=== PATIENT | male | born 1985 | race Caucasian/White ===

== ENCOUNTER 2018-05-08 15:58 | Emergency (ER) | payer OTHER, SELFPAY ==
[2018-05-08 17:11] VITALS: BP 144/79; PULSE 86; RESP 18; TEMP 37; O2SAT 100
--- NOTE | 2018-05-08 17:28 | DI.RAD_ITS ---
SYMPTOMS/DIAGNOSIS: COUGH, CONGESTION CHEST X-RAY, PA AND LATERAL: Comparison is 02/06/12. The heart is normal in size. The lungs are clear. The mediastinal structures and pleura appear intact. IMPRESSION: Normal chest.
--- NOTE | 2018-05-08 17:31 | ED.GENADUL_ITS ---
Discharge Plan Disposition Patient Disposition: HOME Condition: Improving Discharge Details Chief Complaint: RespSymp Clinical Impression: Acute bronchitis with bronchospasm Reason For Visit: cold chills SOB Primary Care Provider: Milady Hernandez ED Provider: Trevor Lazo Home Meds and New Rx's Prescriptions: New doxycycline hyclate 100 mg capsule 100 mg PO BID 10 Days Qty: 20 RF: 0 No Action methylprednisolone 4 MG tablets,dose pack 4 mg PO DIRECTED Qty: 1 RF: 0 Discharge Instructions Instructions: Acute Bronchitis (ED) Additional Instructions: Antibiotics as prescribed, May use albuterol, as needed for shortness of breath, wheeze, coughing spasms during times of illness. Return if you develop worsening discomfort, difficulty breathing, or any other acute concerns. Medical Decision Making 33-year-old male presents from home with day 2 of cough, congestion, mild shortness of breath is worse with exertion. Is not had chest pain. He did have associated fever. He arrives with a temperature of 37, pulse 86, blood pressure 144/79 with a normal oxygenation. Diagnosis includes URI with bronchospasm, viral versus bacterial, must exclude underlying influenza. Influenza testing negative. Patient's chestXR without focal infiltrate. I do feel he has bronchitis and mild bronchospasm is needed to improve movement of air following DuoNeb updraft. I will treated with a course of doxycycline as well as as needed use of albuterol at home. He stable, improved, appropriate for discharge to home at this time. ECG Data Attestation: I personally reviewed and interpreted this ECG (s) as follows: Interpretation: Normal sinus rhythm, rate is 82, QRS is narrow, no ST segment elevation HPI General Mode of arrival: ambulatory . Date/Time Provider Initiated Documentation: 05/08/18 16:17 . Limitations to Documentation: no limitations . Information obtained by: patient . History of Present Illness 33 year old M presents to the emergency department with the chief complaint of Cough, malaise, feeling short of breath, described as moderate, Quality is described as dull and constant, and is localized to the chest. Patient reports no radiation. Patient started experiencing this day(s) and it has been constant. No relieving factors improve symptom(s), No exacerbating factors reported . Patient notes no other symptoms.. Patient did receive the following treatments prior to arrival, none Related Data Home Medications Medication Instructions Recorded Confirmed methylprednisolone 4 mg PO DIRECTED #1 pkt 08/22/13 07/01/15 doxycycline hyclate 100 mg PO BID 10 Days #20 cap 05/08/18 Previous Rx's Medication Instructions Recorded methylprednisolone 4 mg PO DIRECTED #1 pkt 08/22/13 doxycycline hyclate 100 mg PO BID 10 Days #20 cap 05/08/18 Allergies Allergy/AdvReac Type Severity Reaction Status Date / Time No Known Allergies Allergy Unverified 07/01/15 10:05 General Stated Complaint: RespSymp SUKI: 4 Review of Systems Review of Systems 8 systems reviewed and otherwise negative [facility] Social History Smoking and Tabacco status: Never Exam Narrative Exam Narrative: GEN: awake, alert, oriented 3. Pleasant, well groomed, interactive. HEAD: Normocephalic, atraumatic ENT: Mucous membranes moist, oropharynx unremarkable, External ear exam unremarkable EYES: PERRL, EOMI NECK: Full ROM, no RENAE, no menigismus CHEST/RESP: Nontender, diminished bilateral CARDIOVASCULAR: RRR, no murmur, rub francoise. 2+ Rad pulse bilateral ABDOMEN: Soft, nontender, no mass. +Bowel sounds EXT: Full ROM, no edema, no rash Neuro: Grossly normal neurologic exam, conversant, interactive. Psych: Speech fluent, thoughts congruent, affect normal Course Vital Signs Temperature 37 C 05/08/18 17:11 Pulse 86 05/08/18 17:11 Respiratory Rate 18 05/08/18 17:11 Blood Pressure 144/79 H 05/08/18 17:11 Pulse Oximetry 100 05/08/18 17:11 Temperature 37 C 05/08/18 17:11 Temperature Source Temporal Artery Scan 05/08/18 17:11 Pulse 86 05/08/18 17:11 Respiratory Rate 18 05/08/18 17:11 Respiratory Effort Short of Breath 05/08/18 17:26 Respiratory Depth Normal 05/08/18 17:26 Blood Pressure 144/79 H 05/08/18 17:11 Pulse Oximetry 100 05/08/18 17:11 Oxygen Delivery Method Room Air 05/08/18 17:11 Oxygen Flow Rate 0 05/08/18 17:11 Lab/Test Results Lab/Test Results: 05/08/18 17:24 Nasopharynx Influenza Types A,B Antigen - Pending
[2018-05-08 17:38] VITALS: RESP 4
[2018-05-08] MEDS: Albuterol/Ipratropium 3 ML UPD VIAL UPD (17:38)
--- NOTE | 2018-05-08 18:46 | DI.VRAD_ITS ---
EXAM: XR Chest, 2 Views EXAM DATE/TIME: 05/08/2018 6:13 PM CLINICAL HISTORY: 33 years old, male; Signs and symptoms; Other: Cough, congestion TECHNIQUE: XR of the chest, 2 views. COMPARISON: CR CHEST 2 VIEWS PA,LAT 02/06/2012 4:39 PM FINDINGS: Lungs: Unremarkable. No consolidation. Pleural space: Unremarkable. No pleural effusion. No pneumothorax. Heart/Mediastinum: Unremarkable. No cardiomegaly. Bones/joints: Unremarkable. IMPRESSION: Negative chest exam. Dictated and Authenticated by: Barbara Martell MD. Ordering:RANDALL Murray MD
[2018-05-08] MEDS: Doxycycline Hyclate 100 MG CAP PO (19:07)
[2018-05-08] MEDS: Albuterol HFA 8 GM 60 PUFF INH IH (19:07)
== END 2018-05-08 19:18 | disposition home or self-care (01) ==
PROVIDERS: Emergency Provider Emergency Medicine; PCP Nurse Practitioner Family
DX: R09.89 Other specified symptoms and signs involving the circulatory and respiratory systems (principal); R06.02 Shortness of breath; J20.9 Acute bronchitis, unspecified
CPT/HCPCS: 87449; 93005; 94640; 99284; 71046; 93010; J7620